=== PATIENT | male | born 1950 | race Caucasian/White ===

== ENCOUNTER → 2017-02-25 | Outpatient (CLI) | payer BC, MEDICARE ==
--- NOTE | 2017-02-25 15:56 | CT ---
EXAMINATION TYPE: CT brain wo con DATE OF EXAM: 02/25/2017 3:49 PM COMPARISON: 10/17/2010 HISTORY: 66-year-old male syncopal episode yesterday. No known injury. Hypoglycemic event in diabete s. TECHNIQUE: Examination was done in axial plane without intravenous contrast. Coronal and sagittal r econstructions performed. CT DLP: 1201 mGycm Automated exposure control for dose reduction was used. FINDINGS: There is no evidence of acute intracranial hemorrhage, acute ischemic changes, mass, mass-effect, or extra-axial fluid collection. There is no effacement of cerebral sulci or basal subarachnoid cister ns. There is no hydrocephalus. There is no midline shift. Adorno-white matter distinction is preserv ed. Some benign basal ganglia calcifications are noted. Paranasal sinuses and mastoid air cells are pneumatized. Orbits and globes are intact. IMPRESSION: No acute intracranial abnormality seen.
== END ==
LOC: RADCTMAIN 15:05
PROVIDERS: ATTEND Family Medicine
DX: E11.649 Type 2 diabetes mellitus with hypoglycemia without coma (principal)
CPT/HCPCS: 70450

== ENCOUNTER → 2018-06-24 | Outpatient (CLI) | payer MEDICARE, OTHER ==
--- NOTE | 2018-06-25 07:07 | US ---
EXAMINATION TYPE: US kidneys/renal and bladder DATE OF EXAM: 06/24/2018 COMPARISON: NONE CLINICAL HISTORY: N20.0 Calculus of kidney. microscopic hematuria and LLQ pain. EXAM MEASUREMENTS: Right Kidney: 10.6 x 6.4 x 4.6 cm Left Kidney: 10.9 x 5.3 x 4.3 cm Exam limitations due to body habitus. Right Kidney: Hypoechoic area seen mid to upper pole measuring 3.6 x 2.7 x 3.2 cm. Left Kidney: No hydronephrosis or masses seen Bladder: Anechoic Bilateral Jets seen: Right jet seen. There is no evidence for hydronephrosis at this point in time. No nephrolithiasis is seen. The ur inary bladder is anechoic. Right ureteral jet is seen. IMPRESSION: No hydronephrosis is evident bilaterally. Suboptimal study without suspicious finding seen to account for patient's symptoms of left-sided pain and hematuria. CT urogram would be warranted if hematuria persists. Technologist schaefer vague 3.2 cm hypoechoic area mid pole level right kidney, I suspect this reflects lobulated renal cortex, solid mass felt much less likely but not excluded. Follow-up renal protocol CT or MRI is advised to exclude.
== END | disposition home or self-care (01) ==
LOC: RADUSMAIN 17:45
PROVIDERS: ATTEND Family Medicine
DX: N20.0 Calculus of kidney (principal)
CPT/HCPCS: 76770

== ENCOUNTER → 2018-06-29 | Outpatient (CLI) | payer MEDICARE, OTHER ==
--- NOTE | 2018-06-29 18:44 | CT ---
EXAMINATION TYPE: CT abdomen pelvis wo con DATE OF EXAM: 06/29/2018 COMPARISON: Right wrist 2 views PA +4 HISTORY: Left flank pain x 2-[address] DLP: 1260.6 mGycm Automated exposure control for dose reduction was used. TECHNIQUE: Helical acquisition of images was performed from the lung bases through the pelvis. FINDINGS: Within the limits of noncontrast CT the following observations are made: LUNG BASES: No significant abnormality is appreciated. LIVER/GB: No significant abnormality is appreciated. PANCREAS: No significant abnormality is seen. SPLEEN: No significant abnormality is seen. ADRENALS: No significant abnormality is seen. KIDNEYS: No significant abnormality is seen. FREE AIR: No free air is visualized RETROPERITONEAL ADENOPATHY: None visualized REPRODUCTIVE ORGANS: No significant abnormality is seen URINARY BLADDER: No significant abnormality is seen. PELVIC ADENOPATHY: None visualized. OSSEOUS STRUCTURES: No significant abnormality is seen. BOWEL: No significant abnormality is seen. IMPRESSION: NO ACUTE PROCESS. NO CT CORRELATE FOR THE PATIENT'S SYMPTOMS, CT WITHOUT CONTRAST.
== END | disposition home or self-care (01) ==
LOC: RADCTMAIN 17:35
PROVIDERS: ATTEND Family Medicine
DX: R10.9 Unspecified abdominal pain (principal)
CPT/HCPCS: 74176

== ENCOUNTER 2019-07-29 07:41 | Emergency (ER) | payer MEDICARE, OTHER ==
[2019-07-29 07:48] VITALS: TEMP 98.1
[2019-07-29 08:11] LABS: Glucose,Whole Blood 152 mg/dL (75-99)
[2019-07-29] MEDS ORDERED: SODIUM CHLORIDE 0.9% 1,000 ML IV STA (08:12)
[2019-07-29] MEDS ORDERED: SODIUM CHLORIDE 0.9% 500 ML 500 ML IV STA (08:12)
--- NOTE | 2019-07-29 08:15 | ED ---
Seizure HPI - General Chief Complaint: Seizure Stated Complaint: Seizure, Diabetic Time Seen by Provider: 07/29/19 07:52 Source: patient, family, RN notes reviewed Mode of arrival: ambulatory Limitations: no limitations - History of Present Illness Initial Comments: This is a 69-year-old male history diabetes who does use Lantus who apparently had a seizure this morning lasting about 2 or 3 minutes with tonic-clonic type activity no tongue biting rate ported. He did fall and sustained some abrasions to his left arm. He was incoherent for. Time. EMS was called but the family did not want to be taken to the hospital and was. Patient has had episodes before with hypoglycemia he had blood sugar this morning and 31 right after the incident. No head or neck complaints he has had hypoglycemia with seizures the past and does seem to be more recurrent however. He denies any head neck or back pain this time no blurry vision loss of function is upper or lower extremities no other modifying factors MD Complaint: seizure, other - Related Data Home Medications Medication Instructions Recorded Confirmed Atorvastatin [Lipitor] 20 mg PO HS 07/29/19 07/29/19 Budesonide/Formoterol Fumarate 2 puff INHALATION RT-BID 07/29/19 07/29/19 [Symbicort 160-4.5 Mcg Inhaler] Clopidogrel [Plavix] 75 mg PO DAILY 07/29/19 07/29/19 FLUoxetine HCL [PROzac] 20 mg PO DAILY 07/29/19 07/29/19 HYDROcodone/APAP 10-325MG [[place] 1 - 2 tab PO Q4HR PRN 07/29/19 07/29/19 10-325] Insulin Glargine [Lantus] 50 unit SQ BID 07/29/19 07/29/19 Lisinopril [Zestril] 10 mg PO BID 07/29/19 07/29/19 Loratadine [Claritin] 10 mg PO DAILY 07/29/19 07/29/19 Pioglitazone [Actos] 45 mg PO DAILY 07/29/19 07/29/19 Ranitidine HCl [Zantac] 300 mg PO DAILY 07/29/19 07/29/19 Tamsulosin [Flomax] 0.4 mg PO DAILY 07/29/19 07/29/19 Allergies Allergy/AdvReac Type Severity Reaction Status Date / Time Penicillins Allergy Unknown Verified 07/29/19 08:55 exenatide [From [place]] AdvReac Itching Verified 07/29/19 08:55 Review of Systems ROS Statement: Those systems with pertinent positive or pertinent negative responses have been documented in the HPI. ROS Other: All systems not noted in ROS Statement are negative. Past Medical History Past Medical History: Asthma, Coronary Artery Disease (CAD), Chest Pain / Angina, Diabetes Mellitus, Seizure Disorder History of Any Multi-Drug Resistant Organisms: None Reported Past Surgical History: Heart Catheterization With Stent Past Psychological History: No Psychological Hx Reported Smoking Status: Never smoker Past Alcohol Use History: None Reported Past Drug Use History: None Reported General Exam - General Exam Comments Initial Comments: This is a well-developed well-nourished awake alert oriented 3 male Limitations: no limitations General appearance: alert, in no apparent distress Head exam: Present: atraumatic, normocephalic, normal inspection Eye exam: Present: normal appearance, PERRL, EOMI. Absent: scleral icterus, conjunctival injection, periorbital swelling ENT exam: Present: normal exam, mucous membranes moist Neck exam: Present: normal inspection. Absent: tenderness, meningismus, lymphadenopathy Respiratory exam: Present: normal lung sounds bilaterally. Absent: respiratory distress, wheezes, rales, rhonchi, stridor Cardiovascular Exam: Present: regular rate, normal rhythm, normal heart sounds. Absent: systolic murmur, diastolic murmur, rubs, gallop, clicks GI/Abdominal exam: Present: soft, normal bowel sounds. Absent: distended, tenderness, guarding, rebound, rigid Extremities exam: Present: full ROM, normal capillary refill, other (Abrasion seen over the lateral left arm no active bleeding no formed by seen no suture repair indicated). Absent: tenderness, pedal edema, joint swelling, calf tenderness Back exam: Present: normal inspection Neurological exam: Present: alert, oriented X3, CN II-XII intact Psychiatric exam: Present: normal affect, normal mood Skin exam: Present: warm, dry, intact, normal color. Absent: rash Course Vital Signs 07/29/19 07:46 Temperature 98.1 F Pulse Rate 78 Respiratory 20 Rate Blood Pressure 147/69 O2 Sat by Pulse 96 Oximetry Medical Decision Making - Medical Decision Making Patient remains awake alert no acute findings the presentation is consistent with a seizure secondary to hypoglycemia. We did discuss the differential. Patient will be discharged and follow-up with his doctor. - Lab Data Result diagrams: 07/29/19 08:03 07/29/19 08:03 Lab Results 07/29/19 07/29/19 07/29/19 Range/Units 08:03 08:03 08:03 WBC 7.7 (3.8-10.6) k/uL RBC 4.87 (4.30-5.90) m/uL Hgb 13.8 (13.0-17.5) gm/dL Hct 43.0 (39.0-53.0) % MCV 88.3 (80.0-100.0) fL MCH 28.2 (25.0-35.0) pg MCHC 32.0 (31.0-37.0) g/dL RDW 14.4 (11.5-15.5) % Plt Count 239 (150-450) k/uL Neutrophils % 79 % Lymphocytes % 11 % Monocytes % 6 % Eosinophils % 2 % Basophils % 1 % Neutrophils # 6.0 (1.3-7.7) k/uL Lymphocytes # 0.9 L (1.0-4.8) k/uL Monocytes # 0.5 (0-1.0) k/uL Eosinophils # 0.2 (0-0.7) k/uL Basophils # 0.0 (0-0.2) k/uL Sodium 142 (137-145) mmol/L Potassium 4.4 (3.5-5.1) mmol/L Chloride 109 H (98-107) mmol/L Carbon Dioxide 24 (22-30) mmol/L Anion Gap 9 mmol/L BUN 22 H (9-20) mg/dL Creatinine 1.09 (0.66-1.25) mg/dL Est GFR (CKD-EPI)AfAm 80 (>60 ml/min/1.73 sqM) Est GFR (CKD-EPI)NonAf 69 (>60 ml/min/1.73 sqM) Glucose 121 H (74-99) mg/dL POC Glucose (mg/dL) (75-99) mg/dL POC Glu Field Marketing Specialist ID Calcium 8.9 (8.4-10.2) mg/dL Magnesium 1.8 (1.6-2.3) mg/dL Total Bilirubin 0.5 (0.2-1.3) mg/dL AST 22 (17-59) U/L ALT 18 L (21-72) U/L Alkaline Phosphatase 82 (38-126) U/L Creatine Kinase 156 (55-170) U/L Troponin I <0.012 (0.000-0.034) ng/mL Total Protein 6.8 (6.3-8.2) g/dL Albumin 4.0 (3.5-5.0) g/dL Urine Color Urine Appearance (Clear) Urine pH (5.0-8.0) Ur Specific [place] (1.001-1.035) Urine Protein (Negative) Urine Glucose (UA) (Negative) Urine Ketones (Negative) Urine Blood (Negative) Urine Nitrite (Negative) Urine Bilirubin (Negative) Urine Urobilinogen (<2.0) mg/dL Ur Leukocyte Esterase (Negative) Urine RBC (0-5) /hpf Urine WBC (0-5) /hpf Urine Mucus (None) /hpf 07/29/19 07/29/19 Range/Units 08:03 08:09 WBC (3.8-10.6) k/uL RBC (4.30-5.90) m/uL Hgb (13.0-17.5) gm/dL Hct (39.0-53.0) % MCV (80.0-100.0) fL MCH (25.0-35.0) pg MCHC (31.0-37.0) g/dL RDW (11.5-15.5) % Plt Count (150-450) k/uL Neutrophils % % Lymphocytes % % Monocytes % % Eosinophils % % Basophils % % Neutrophils # (1.3-7.7) k/uL Lymphocytes # (1.0-4.8) k/uL Monocytes # (0-1.0) k/uL Eosinophils # (0-0.7) k/uL Basophils # (0-0.2) k/uL Sodium (137-145) mmol/L Potassium (3.5-5.1) mmol/L Chloride (98-107) mmol/L Carbon Dioxide (22-30) mmol/L Anion Gap mmol/L BUN (9-20) mg/dL Creatinine (0.66-1.25) mg/dL Est GFR (CKD-EPI)AfAm (>60 ml/min/1.73 sqM) Est GFR (CKD-EPI)NonAf (>60 ml/min/1.73 sqM) Glucose (74-99) mg/dL POC Glucose (mg/dL) 152 H (75-99) mg/dL POC Glu Field Marketing Specialist Annamaria Mccullough Calcium (8.4-10.2) mg/dL Magnesium (1.6-2.3) mg/dL Total Bilirubin (0.2-1.3) mg/dL AST (17-59) U/L ALT (21-72) U/L Alkaline Phosphatase (38-126) U/L Creatine Kinase (55-170) U/L Troponin I (0.000-0.034) ng/mL Total Protein (6.3-8.2) g/dL Albumin (3.5-5.0) g/dL Urine Color Yellow Urine Appearance Clear (Clear) Urine pH 5.5 (5.0-8.0) Ur Specific [place] 1.024 (1.001-1.035) Urine Protein Trace H (Negative) Urine Glucose (UA) Negative (Negative) Urine Ketones Negative (Negative) Urine Blood Trace H (Negative) Urine Nitrite Negative (Negative) Urine Bilirubin Negative (Negative) Urine Urobilinogen <2.0 (<2.0) mg/dL Ur Leukocyte Esterase Negative (Negative) Urine RBC 1 (0-5) /hpf Urine WBC 1 (0-5) /hpf Urine Mucus Rare H (None) /hpf - EKG Data -: EKG Interpreted by Me (Sinus rhythm with occasional PVCs rate was 74. Interval 168 QRS duration 8) - Radiology Data Radiology results: report reviewed (I did review the imaging and report no acute findings.), image reviewed Disposition Clinical Impression: Generalized seizure, Hypoglycemic episode in patient with diabetes mellitus Disposition: HOME SELF-CARE Condition: Good Instructions (If sedation given, give patient instructions): Hypoglycemia in a Person with Diabetes (ED), Recurrent Seizures in Adults (ED) Is patient prescribed a controlled substance at d/c from ED?: No Referrals: Arturo Álvarez MD [Primary Care Provider] - 1-2 days
[2019-07-29 08:33] LABS: Basophils % (A) 1 %; Eosinophils # (A) 0.2 k/uL (0-0.7); Eosinophils % (A) 2 %; HGB 13.8 gm/dL (13.0-17.5); Lymphocytes # (A) 0.9 k/uL (1.0-4.8); Lymphocytes % (A) 11 %; MCH 28.2 pg (25.0-35.0); MCV 88.3 fL (80.0-100.0); Mean Platelet Volume 6.7; Monocytes # (A) 0.5 k/uL (0-1.0); Monocytes % (A) 6 %; Neutrophils % (A) 79 %; Platelet Count 239 k/uL (150-450); RBC 4.87 m/uL (4.30-5.90); RDW 14.4 % (11.5-15.5); WBC 7.7 k/uL (3.8-10.6)
[2019-07-29 08:42] LABS: Appearance,Urine Clear (Clear); Bilirubin,Urine Negative (Negative); Blood,Urine Trace (Negative); Color,Urine Yellow; Glucose,Urine (UA) Negative (Negative); Ketones,Urine Negative (Negative); Leukocyte Esterase,Urine Negative (Negative); Mucus,Urine Rare /hpf; Nitrite,Urine Negative (Negative); PH, Urine 5.5 (5.0-8.0); Protein,Urine Trace (Negative); RBC,Urine 1 /hpf (0-5); Specific Gravity,Urine 1.024 (1.001-1.035); Urobilinogen,Urine <2.0 mg/dL (<2.0); WBC,Urine 1 /hpf (0-5)
[2019-07-29 08:46] LABS: Calcium 8.9 mg/dL (8.4-10.2); Magnesium 1.8 mg/dL (1.6-2.3); Potassium 4.4 mmol/L (3.5-5.1); Total Bilirubin 0.5 mg/dL (0.2-1.3); Total Protein 6.8 g/dL (6.3-8.2)
--- NOTE | 2019-07-29 09:22 | XR ---
EXAMINATION TYPE: XR chest 2V DATE OF EXAM: 07/29/2019 COMPARISON: 10/17/2010 HISTORY: Dizziness and hypoglycemia TECHNIQUE: Frontal and lateral views of the chest are obtained. FINDINGS: Patchy right midlung opacity could represent confluence of vasculature or atelectasis. Ear ly developing pneumonia is possible. Underlying COPD is seen with flattening of the diaphragms. Mild multilevel degenerative changes of the spine. Cardiomediastinal silhouette is within normal limits. IMPRESSION: Patchy opacity in the right midlung may represent atelectasis, confluence of pulmonary v asculature or much less likely early developing pneumonia in the appropriate clinical setting.
--- NOTE | 2019-07-29 09:45 | CT ---
EXAMINATION TYPE: CT brain wo con DATE OF EXAM: 07/29/2019 HISTORY: hypoglycemic seizure with fall. History of prior seizures CT DLP: 1099.4 mGycm. Automated Exposure Control for Dose Reduction was Utilized. TECHNIQUE: CT scan of the head is performed without contrast. COMPARISON: CT brain February 25, 2017.. FINDINGS: There is no acute intracranial hemorrhage or midline shift identified. There is diffuse v entricular and sulcal prominence consistent with diffuse cerebral atrophy slightly more prominent ove r the bilateral frontal lobes without significant change from prior. There is low-attenuation in the periventricular white matter consistent with chronic small vessel ischemic change. Mild vascular con stipation distal internal carotid arteries bilaterally. Nasal septum remains deviated to right of mid line. The globes are intact and the visualized sinuses are clear. IMPRESSION: No acute intracranial hemorrhage or midline shift. There is mild diffuse age-related ce rebral atrophy and chronic small vessel ischemic change redemonstrated without significant interval c hange.
[2019-07-29 10:46] VITALS: BP 140/73; PULSE 81; RESP 15
== END 2019-07-29 10:38 | disposition home or self-care (01) ==
LOC: EC 07:41
DX: G40.309 Generalized idiopathic epilepsy and epileptic syndromes, not intractable, without status epilepticus (principal); S40.812A Abrasion of left upper arm, initial encounter; E11.649 Type 2 diabetes mellitus with hypoglycemia without coma; J45.909 Unspecified asthma, uncomplicated; I25.10 Atherosclerotic heart disease of native coronary artery without angina pectoris; Z79.02 Long term (current) use of antithrombotics/antiplatelets; Z79.51 Long term (current) use of inhaled steroids; Z79.4 Long term (current) use of insulin; Z79.899 Other long term (current) drug therapy; Z88.0 Allergy status to penicillin; Z88.8 Allergy status to other drugs, medicaments and biological substances; Z95.5 Presence of coronary angioplasty implant and graft; W19.XXXA Unspecified fall, initial encounter
CPT/HCPCS: 36415; 70450; 71046; 80053; 81001; 82550; 83735; 84484; 85025; 93005; 96360; 96361; 99284

== ENCOUNTER 2019-09-01 15:11 | Emergency (ER) | payer MEDICARE, OTHER ==
[2019-09-01 15:21] VITALS: RESP 18
[2019-09-01] MEDS ORDERED: methylPREDNISolone SOD SUCCI 125 MG/2 ML VIAL IV STA (15:37)
[2019-09-01] MEDS ORDERED: SODIUM CHLORIDE 0.9% 1,000 ML IV STA (15:37)
--- NOTE | 2019-09-01 15:44 | ED ---
General Adult HPI <Germain Reed - Last Filed: 09/01/19 19:37> - General Source: patient, RN notes reviewed, old records reviewed Mode of arrival: ambulatory Limitations: no limitations <Paulie Reyes - Last Filed: 09/01/19 21:51> - General Chief complaint: ENT Stated complaint: unable to swallow Time Seen by Provider: 09/01/19 15:23 - History of Present Illness Initial comments: 69-year-old male patient passed no history of coronary artery disease, type 2 diabetes seizure disorder presents to 2 days of sore throat, difficulty swallowing. Patient reports that he is able to swallow liquids however feels as if it is difficult and cause him to choke. Patient has not been able to tolerate solid foods last 2 days. Reports that this has happened to him in the past on multiple occasions and resolves within a few days. Patient reports that he did have an endoscopy done approximately 25 years ago. Denies any other complaints at this time. Systemic: Pt denies fatigue, fever/chills, rash. Pt denies weakness, night sweats, weight loss. Neuro: Pt denies headache, visual disturbances, syncope or pre-syncope. HEENT: Pt denies ocular discharge or irritation, otalgia, rhinorrhea, pharyngitis or notable lymphadenopathy. Cardiopulmonary: Pt denies chest pain, SOB, heart palpitations, dyspnea on exertion. Abdominal/GI: Pt denies abdominal pain, n/v/d. : Pt denies dysuria, burning w/ urination, frequency/urgency. Denies new onset urinary or bowel incontinence. MSK: Pt denies myalgia, loss of strength or function in extremities. Neuro: Pt denies new onset weakness, paresthesias. (Paulie Reyes) - Related Data Home Medications Medication Instructions Recorded Confirmed Atorvastatin [Lipitor] 20 mg PO HS 07/29/19 09/01/19 Budesonide/Formoterol Fumarate 2 puff INHALATION RT-BID 07/29/19 09/01/19 [Symbicort 160-4.5 Mcg Inhaler] Clopidogrel [Plavix] 75 mg PO DAILY 07/29/19 09/01/19 FLUoxetine HCL [PROzac] 20 mg PO DAILY 07/29/19 09/01/19 HYDROcodone/APAP 10-325MG [[place] 1 tab PO Q4-6H PRN 07/29/19 09/01/19 10-325] Insulin Glargine [Lantus] 50 unit SQ QAM 07/29/19 09/01/19 Lisinopril [Zestril] 20 mg PO HS 07/29/19 09/01/19 Loratadine [Claritin] 10 mg PO DAILY 07/29/19 09/01/19 Pioglitazone [Actos] 45 mg PO DAILY 07/29/19 09/01/19 Ranitidine HCl [Zantac] 300 mg PO DAILY 07/29/19 09/01/19 Tamsulosin [Flomax] 0.4 mg PO DAILY 07/29/19 09/01/19 Insulin Glargine [Lantus] 35 unit SQ HS 09/01/19 09/01/19 Lidocaine Viscous 2% [Xylocaine 10 ml PO QID PRN 09/01/19 09/01/19 Viscous] Allergies Allergy/AdvReac Type Severity Reaction Status Date / Time Penicillins Allergy Unknown Verified 09/01/19 20:29 exenatide [From [place]] AdvReac Itching Verified 09/01/19 20:29 Review of Systems ROS Other: All systems not noted in ROS Statement are negative. <Germain Reed - Last Filed: 09/01/19 19:37> ROS Other: All systems not noted in ROS Statement are negative. <Paulie Reyes - Last Filed: 09/01/19 21:51> ROS Statement: Those systems with pertinent positive or pertinent negative responses have been documented in the HPI. Past Medical History Past Medical History: Asthma, Coronary Artery Disease (CAD), Chest Pain / Angina, Diabetes Mellitus, Seizure Disorder History of Any Multi-Drug Resistant Organisms: None Reported Past Surgical History: Heart Catheterization With Stent Past Psychological History: No Psychological Hx Reported Smoking Status: Never smoker Past Alcohol Use History: None Reported Past Drug Use History: None Reported <Paulie Reyes - Last Filed: 09/01/19 21:51> General Exam Limitations: no limitations <Paulie Reyes - Last Filed: 09/01/19 21:51> - General Exam Comments Initial Comments: Constitutional: NAD, AOX3, Pt has pleasant affect. HEENT: NC/AT, trachea midline, neck supple, no lymphadenopathy. Posterior pharynx mildly erythematous, without exudates. External ears appear normal, without discharge. Mucous membranes moist. Eyes PERRLA, EOM intact. There is no scleral icterus. No pallor noted. Cardiopulmonary: RRR, no murmurs, rubs or gallops, no JVD noted. Lungs CTAB in anterior and posterior guillaume. No peripheral edema. Abdominal exam: Abdomen soft and non-distended. Abdomen non-tender to palpation in all 4 quadrants. Bowel sounds active in LLQ. No hepatosplenomegaly. No ecchymosis Neuro: CN II-XII intact. No nuchal rigidity. No raccon eyes, no hidalgo sign, no hemotympanum. No cervical spinal tenderness. MSK: No posterior calf tenderness bilaterally, homans sign negative bilaterally. Posterior tibialis and radial pulse +2 bilaterally. Sensation intact in upper and lower extremities. Full active ROM in upper and lower extremities, 5/5 stregnth. (Paulie Reyes) Course <Germain Reed - Last Filed: 09/01/19 19:37> Vital Signs 09/01/19 09/01/19 15:18 20:02 Temperature 98.5 F Pulse Rate 69 65 Respiratory 18 18 Rate Blood Pressure 149/76 150/78 O2 Sat by Pulse 96 96 Oximetry - Reevaluation(s) Reevaluation #1: 09/01/19 19:35 PA supervision: I proceeded [id number] evaluation the patient he does present with complaints of sore throat 2 days he denies any fevers chills or sweats he states he does have difficulty swallowing fluids and food. He is not recall swallowing a day no trouble breathing no other modifying factors. Patient did have imaging done which did show evidence of a metallic foreign body in the esophagus. Patient does not recall what it is possible he swallowed a metallic staple from a ice bag but does not recall any disc shaped metal objects in his mouth in the past couple days. He did have no stridor JVD or bruits on examinat ion lung sounds are clear. Dr. Shay was consulted for upper endoscopy. (Germain Reed) Medical Decision Making - Lab Data Result diagrams: 09/01/19 15:57 09/01/19 15:57 <Germain Reed - Last Filed: 09/01/19 19:37> - Lab Data Result diagrams: 09/01/19 15:57 09/01/19 15:57 <Paulie Reyes - Last Filed: 09/01/19 21:51> - Medical Decision Making 69-year-old male patient presents to ED for dysphagia. Patient felt a stable, afebrile. Physical exam did not display acute pathology. CT since with foreign body in esophagus. Plain film confirmed this. Dr. Shay from GI was consult for endoscopy. Upper endoscopy removed 4 nickels. Patient alert and oriented 3 after sedation. Patient was discharged for follow-up with primary care provider return to ER if condition worsens. Case discussed with Dr. Reed. (Paulie Reyes) - Lab Data Lab Results 09/01/19 09/01/19 09/01/19 Range/Units 15:57 15:57 15:57 WBC 8.5 (3.8-10.6) k/uL RBC 4.93 (4.30-5.90) m/uL Hgb 14.0 (13.0-17.5) gm/dL Hct 43.0 (39.0-53.0) % MCV 87.1 (80.0-100.0) fL MCH 28.3 (25.0-35.0) pg MCHC 32.5 (31.0-37.0) g/dL RDW 14.1 (11.5-15.5) % Plt Count 263 (150-450) k/uL Neutrophils % 69 % Lymphocytes % 19 % Monocytes % 7 % Eosinophils % 3 % Basophils % 1 % Neutrophils # 5.9 (1.3-7.7) k/uL Lymphocytes # 1.6 (1.0-4.8) k/uL Monocytes # 0.6 (0-1.0) k/uL Eosinophils # 0.2 (0-0.7) k/uL Basophils # 0.1 (0-0.2) k/uL Sodium 140 (137-145) mmol/L Potassium 4.7 (3.5-5.1) mmol/L Chloride 108 H (98-107) mmol/L Carbon Dioxide 23 (22-30) mmol/L Anion Gap 9 mmol/L BUN 14 (9-20) mg/dL Creatinine 1.00 (0.66-1.25) mg/dL Est GFR (CKD-EPI)AfAm 88 (>60 ml/min/1.73 sqM) Est GFR (CKD-EPI)NonAf 77 (>60 ml/min/1.73 sqM) Glucose 161 H (74-99) mg/dL Plasma Lactic Acid [place] 1.1 (0.7-2.0) mmol/L Calcium 9.2 (8.4-10.2) mg/dL Total Bilirubin 0.6 (0.2-1.3) mg/dL AST 22 (17-59) U/L ALT 23 (21-72) U/L Alkaline Phosphatase 96 (38-126) U/L Total Protein 6.9 (6.3-8.2) g/dL Albumin 4.1 (3.5-5.0) g/dL Urine Color Urine Appearance (Clear) Urine pH (5.0-8.0) Ur Specific [place] (1.001-1.035) Urine Protein (Negative) Urine Glucose (UA) (Negative) Urine Ketones (Negative) Urine Blood (Negative) Urine Nitrite (Negative) Urine Bilirubin (Negative) Urine Urobilinogen (<2.0) mg/dL Ur Leukocyte Esterase (Negative) Urine RBC (0-5) /hpf Urine WBC (0-5) /hpf Ur Squamous Epith Cells (0-4) /hpf Urine Bacteria (None) /hpf Urine Mucus (None) /hpf Group A Strep Rapid (Negative) 09/01/19 09/01/19 Range/Units 16:02 16:02 WBC (3.8-10.6) k/uL RBC (4.30-5.90) m/uL Hgb (13.0-17.5) gm/dL Hct (39.0-53.0) % MCV (80.0-100.0) fL MCH (25.0-35.0) pg MCHC (31.0-37.0) g/dL RDW (11.5-15.5) % Plt Count (150-450) k/uL Neutrophils % % Lymphocytes % % Monocytes % % Eosinophils % % Basophils % % Neutrophils # (1.3-7.7) k/uL Lymphocytes # (1.0-4.8) k/uL Monocytes # (0-1.0) k/uL Eosinophils # (0-0.7) k/uL Basophils # (0-0.2) k/uL Sodium (137-145) mmol/L Potassium (3.5-5.1) mmol/L Chloride (98-107) mmol/L Carbon Dioxide (22-30) mmol/L Anion Gap mmol/L BUN (9-20) mg/dL Creatinine (0.66-1.25) mg/dL Est GFR (CKD-EPI)AfAm (>60 ml/min/1.73 sqM) Est GFR (CKD-EPI)NonAf (>60 ml/min/1.73 sqM) Glucose (74-99) mg/dL Plasma Lactic Acid [place] (0.7-2.0) mmol/L Calcium (8.4-10.2) mg/dL Total Bilirubin (0.2-1.3) mg/dL AST (17-59) U/L ALT (21-72) U/L Alkaline Phosphatase (38-126) U/L Total Protein (6.3-8.2) g/dL Albumin (3.5-5.0) g/dL Urine Color Yellow Urine Appearance Clear (Clear) Urine pH 5.5 (5.0-8.0) Ur Specific [place] 1.019 (1.001-1.035) Urine Protein Negative (Negative) Urine Glucose (UA) Negative (Negative) Urine Ketones Negative (Negative) Urine Blood Trace H (Negative) Urine Nitrite Negative (Negative) Urine Bilirubin Negative (Negative) Urine Urobilinogen <2.0 (<2.0) mg/dL Ur Leukocyte Esterase Negative (Negative) Urine RBC <1 (0-5) /hpf Urine WBC 1 (0-5) /hpf Ur Squamous Epith Cells <1 (0-4) /hpf Urine Bacteria Rare H (None) /hpf Urine Mucus Occasional H (None) /hpf Group A Strep Rapid Negative (Negative) Disposition <Germain Reed - Last Filed: 09/01/19 19:37> Is patient prescribed a controlled substance at d/c from ED?: No <Paulie Reyes - Last Filed: 09/01/19 21:51> Clinical Impression: Foreign body in esophagus Disposition: HOME SELF-CARE Condition: Stable Instructions (If sedation given, give patient instructions): Upper Endoscopy (DC) Additional Instructions: Follow up with PRIMARY care provider. Return to ER if condition worsens in any way. No solid foods tonight. Only liquids. Referrals: Arturo Álvarez MD [Primary Care Provider] - 1-2 days
[2019-09-01] MEDS ORDERED: KETOROLAC 30 MG/ML 1 ML VIAL IVP STA (15:48)
[2019-09-01 16:19] LABS: Appearance,Urine Clear (Clear); Bacteria,Urine Rare /hpf; Bilirubin,Urine Negative (Negative); Blood,Urine Trace (Negative); Color,Urine Yellow; Glucose,Urine (UA) Negative (Negative); Ketones,Urine Negative (Negative); Leukocyte Esterase,Urine Negative (Negative); Mucus,Urine Occasional /hpf; Nitrite,Urine Negative (Negative); PH, Urine 5.5 (5.0-8.0); Protein,Urine Negative (Negative); RBC,Urine <1 /hpf (0-5); Specific Gravity,Urine 1.019 (1.001-1.035); Squamous Epithelial Cell,Urine <1 /hpf (0-4); Urobilinogen,Urine <2.0 mg/dL (<2.0)
[2019-09-01 16:23] LABS: Basophils # (A) 0.1 k/uL (0-0.2); Basophils % (A) 1 %; Eosinophils # (A) 0.2 k/uL (0-0.7); Eosinophils % (A) 3 %; Lymphocytes # (A) 1.6 k/uL (1.0-4.8); Lymphocytes % (A) 19 %; MCH 28.3 pg (25.0-35.0); MCHC 32.5 g/dL (31.0-37.0); MCV 87.1 fL (80.0-100.0); Mean Platelet Volume 6.8; Monocytes # (A) 0.6 k/uL (0-1.0); Monocytes % (A) 7 %; Neutrophils # (A) 5.9 k/uL (1.3-7.7); Neutrophils % (A) 69 %; Platelet Count 263 k/uL (150-450); RBC 4.93 m/uL (4.30-5.90); RDW 14.1 % (11.5-15.5); WBC 8.5 k/uL (3.8-10.6)
[2019-09-01 16:28] LABS: Albumin 4.1 g/dL (3.5-5.0); Calcium 9.2 mg/dL (8.4-10.2); Potassium 4.7 mmol/L (3.5-5.1); Total Bilirubin 0.6 mg/dL (0.2-1.3); Total Protein 6.9 g/dL (6.3-8.2)
--- NOTE | 2019-09-01 17:58 | CT ---
EXAMINATION TYPE: CT soft tissue neck w con DATE OF EXAM: 09/01/2019 5:21 PM COMPARISON: None HISTORY: Vomiting, FB sensation CT DLP: 531.4 mGycm Automated exposure control for dose reduction was used. CONTRAST: CT scan of the neck is performed following with IV Contrast, patient injected with 100 mL of Isovue 3 00. Axial images are obtained, coronal and sagittal reformatted images are reviewed. FINDINGS: Thyroid gland is symmetric. There is normal branching pattern of the great vessels on the aortic arch . There is arterial flow in the common internal and external carotid arteries bilaterally. There is b ilateral plaque formation at the carotid artery bifurcations and lumen narrowing probably more than 5 0%. This is seen at the origins of the internal carotid arteries. There is normal opacification of the jugular veins. There is contrast opacification of the vertebral arteries. Epiglottis appears normal. The tonsils and adenoids are within normal limits. There is some dense met al artifact that appears to be arising from the upper cervical esophagus. On the frontal view on the topogram this could be a coin in the upper cervical esophagus. There is normal aeration of the paranasal sinuses. Orbital margins are intact. There is no evidence o f orbital mass. There is some fatty infiltration of the parotid glands. Submandibular salivary glands are symmetric. I see no cervical adenopathy. Cervical spine appears intact. I see no bony destructive process. There is normal alignment of the cervical vertebra. IMPRESSION: There is some dense metal object in the upper cervical esophagus. Plain film exam would be helpful to better characterize. This could be something very dense such as a gold coin.
--- NOTE | 2019-09-01 19:04 | XR ---
EXAMINATION TYPE: XR soft tissue neck DATE OF EXAM: 09/01/2019 COMPARISON: NONE HISTORY: Sore throat TECHNIQUE: 4 views FINDINGS: Epiglottis appears normal. Prevertebral soft tissues appear normal. There are several rounded metallic densities in the upper es ophagus in the cervical region at the C7 level. IMPRESSION: There are rounded metallic densities in the cervical esophagus that could be a stack of t hree coins.
[2019-09-01] MEDS ORDERED: IV FLUID CONTINUATION 1,000 ML IV ONE (21:11)
[2019-09-01] MEDS ORDERED: SUCCINYLCHOLINE CHLORIDE 100 MG/5 ML SYR IV ONE (21:15)
[2019-09-01] MEDS ORDERED: PROPOFOL 10 MG/ML 20 ML VIAL IV ONE (21:15)
--- NOTE | 2019-09-01 21:35 | P.PCN ---
Date of Procedure: 09/01/19 Procedure(s) Performed: BRIEF HISTORY: Patient is a 69-year-old, pleasant, white male, came to the emergency room with acute dysphagia for the last 2 days' duration. He has been complaining of sore throat and not able to swallow any solids for the last 2 days but can swallow liquids. In the ER he had a x-ray done as well as a CAT scan of the neck that showed metallic foreign body in the upper esophageal sphincter. His and scheduled for an upper endoscopy for foreign body removal. Patient denies swallowing any foreign bodies.. PROCEDURE PERFORMED: Esophagogastroduodenoscopy with foreign body removal. PREOPERATIVE DIAGNOSIS: Dysphagia/odynophagia of 2 days' duration. IV sedation per anesthesia. PROCEDURE: After informed consent was obtained, the patient was brought into the endoscopy unit. IV sedation was administered by Anesthesia under continuous monitoring. Initially the Olympus GIF-140 video endoscope was inserted into the mouth. Esophagus intubated without any difficulty. In the upper esophageal sphincter there were 4 metallic coins stacked on top of each other noted. Using the rat-tooth forceps for coins in (5 cent coins) with treatment one of his other without any difficulty. Finding this the esophagus was intubated without any difficulty and the scope was was gradually advanced into the stomach and duodenum and carefully examined. The bulb and the second part of the duodenum appeared normal. The scope at this time was withdrawn to the stomach, adequately insufflated with air, and upon careful examination, mucosa of the antrum, body, cardia and the fundus appeared normal. The scope was then withdrawn into the esophagus. The GE junction was located at 39 cm from the incisors. The esophagus appeared normal. the proximal cervical esophagus was carefully examined and there was a circumferential esophageal web noted at 20 cm from the incisors and proximal duodenal erosions at the site of foreign body impaction. The patient tolerated the procedure well. IMPRESSION: 1. 4 metal coins (5 cent coins) impacted in the proximal cervical esophagus at the upper esophageal sphincter status post retrieval with rat-tooth forceps as described above 2. 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 He was advised to be on a clear liquid diet today and soft diet for 2 days. He'll be discharged home today.
[2019-09-01 22:48] VITALS: BP 124/81; PULSE 72; TEMP 98.4
--- NOTE | 2019-09-02 05:34 | CONS ---
CONSULTATION DATE OF SERVICE: 09/01/2019. REASON FOR CONSULTATION: Foreign body in esophagus. HISTORY OF PRESENT ILLNESS: The patient is a 69-year-old pleasant white male who came to the emergency room because he was having sore throat and difficulty swallowing for the last 2 days duration. He is able to swallow liquids but having severe odynophagia. He was not able to take any solid food or his pills for the last 2 days. He came to the emergency room and he did have x-ray done that showed a disk-like foreign body in the upper esophageal sphincter and hence we are consulted for EGD for the foreign body removal. He does not recall swallowing any foreign body such as a battery or a coin. Never had these symptoms in the past. PAST MEDICAL HISTORY: Significant for coronary artery disease, type 2 diabetes mellitus, hypertension, seizure disorder, gastroesophageal reflux disease and anxiety, depression. MEDICATIONS AT HOME: Lipitor, Symbicort, Plavix, Prozac, [place], Lantus, Zestril, Claritin, Actos, Zantac, Flomax. ALLERGIES: PENICILLIN and BYETTA. PAST SURGICAL HISTORY: Cardiac cath with stent. SOCIAL HISTORY: No smoking. No alcohol use. FAMILY HISTORY: Unremarkable. REVIEW OF SYSTEMS: CARDIOPULMONARY: No chest pain or shortness of breath. GENITOURINARY: No dysuria or hematuria. MUSCULOSKELETAL: Unremarkable. SKIN: Unremarkable. ENDOCRINE: Unremarkable. PSYCHIATRIC: Unremarkable. NEUROLOGY: Unremarkable. ENT/VISION: Unremarkable. CONSTITUTIONAL: No recent weight loss. No fever, chills, or night sweats. PHYSICAL EXAMINATION: Blood pressure 149/76, pulse rate 69. Temperature 98.5. HEENT EXAMINATION: Unremarkable. Conjunctivae pink. Sclerae anicteric. Oral cavity, no lesions. NECK: No JVD or lymph node enlargement. CHEST: Clear to auscultation. HEART: Regular rate and rhythm. ABDOMEN: Soft. Bowel sounds are positive. No organomegaly. EXTREMITIES: No pedal edema. SKIN: No rashes. NEURO: Alert and oriented x3. No focal deficits. LABS: CBC with differential count is normal. Basic metabolic panel is within normal limits. Soft tissue neck CT showed disk-like foreign body with a dense metal object in the upper cervical esophagus, suspicious for a coin. IMPRESSION: 1. Esophageal foreign body. 2. Sore throat and dysphagia/odynophagia of 2 days duration. RECOMMENDATIONS: We will proceed with an EGD with foreign body removal in the emergency room today. Risks, benefits and complications of the procedure were discussed with the patient and he is agreeable to it. Thank you for this consultation. ROSETTA / BENN: [id number] /
== END 2019-09-01 22:48 | disposition home or self-care (01) ==
LOC: EC 15:11
DX: T18.198A Other foreign object in esophagus causing other injury, initial encounter (principal); J45.909 Unspecified asthma, uncomplicated; I25.119 Atherosclerotic heart disease of native coronary artery with unspecified angina pectoris; E11.9 Type 2 diabetes mellitus without complications; Z88.0 Allergy status to penicillin; Z88.8 Allergy status to other drugs, medicaments and biological substances; Z79.02 Long term (current) use of antithrombotics/antiplatelets; Z79.4 Long term (current) use of insulin; Z79.51 Long term (current) use of inhaled steroids; Z79.899 Other long term (current) drug therapy; Z95.5 Presence of coronary angioplasty implant and graft
CPT/HCPCS: 99285 ×2; 96374 ×2; 96375 ×2; 96361 ×8; 36415; 80053; 83605; 85025; 81001; 87081; 87430; 70360; 70491; 43247; J2930; J1885; J0330; J2704; Q9967

== ENCOUNTER → 2020-03-02 | Outpatient (CLI) | payer MEDICARE, OTHER ==
[2020-03-02 16:28] LABS: Albumin 4.1 g/dL (3.80-4.90); Albumin/Globulin Ratio 2.16 (1.60-3.17); Calcium 9.2 mg/dL (8.7-10.3); Chol/HDL Ratio 2.8; Globulin 1.9 g/dL (1.6-3.3); LDL Cholesterol,Calculated 75.2 mg/dL (0.0-131.0); Non-African American GFR(CKD) 68.1 (60.0-200.0); Potassium 4.5 mmol/L (3.5-5.5); Total Bilirubin 0.6 mg/dL (0.2-1.2); VLDL Calculation 16.8 mg/dL (5.00-40.00)
== END | disposition home or self-care (01) ==
LOC: LABWHC1 09:34
PROVIDERS: ATTEND Internal Medicine Interventional Cardiology
DX: E78.2 Mixed hyperlipidemia (principal)
CPT/HCPCS: 36415; 80053; 80061